=== PATIENT | female | born 1950 ===

== ENCOUNTER → 2018-09-02 | Outpatient (CLI) | payer OTHER ==
--- NOTE | 2018-09-02 13:12 | Diagnostic Imaging Report ---
Indication:Abdominal pain. Liver disease Technique: Grayscale and duplex Doppler imaging of the abdomen performed. Comparison: None Findings: Liver shows a mild coarsened echotexture with suggestion of very mild nodularity on the second of high-resolution images of the surface. Liver is normal in size spanning 15 cm at maximum. Findings suggest mild chronic disease. CBD is 6 cm. The gallbladder is unremarkable. The demonstrated part of the pancreas, aorta and IVC show no abnormalities. Both kidneys appear unremarkable. The spleen is normal in size measuring 10 cm. There is no biliary ductal dilatation identified. Doppler evaluation of the main portal vein shows patency. There is no ascites. No hydronephrosis seen. Impression: Suggestion of mild chronic liver disease.
== END | disposition home or self-care (01) ==
LOC: ULS 12:49
DX: K76.0 Fatty (change of) liver, not elsewhere classified (principal)
CPT/HCPCS: 76700